=== PATIENT | female | born 1970 | race Caucasian/White ===

== ENCOUNTER 2018-10-24 10:13 | Emergency (ER) | payer SELFPAY ==
[~2018-10-24] VITALS: Ht 177.8 cm; Wt 71.5 kg
[2018-10-24 10:43] VITALS: BP 113/78
== END 2018-10-24 13:46 | disposition home or self-care (01) ==
LOC: ED 13:06
DX: N30.01 Acute cystitis with hematuria (principal); N92.1 Excessive and frequent menstruation with irregular cycle
CPT/HCPCS: 36415; 76830; 80048; 81001; 82040; 84703; 85025; 87077; 87086; 87186; 99284